=== PATIENT | male | born 1990 | race Caucasian/White ===

== ENCOUNTER 2017-03-27 14:16 | Outpatient (CLI) | payer OTHER | END 2017-03-27 14:17 | disposition home or self-care (01) | LOC: SC 14:16 | PROVIDERS: ATTEND Internal Medicine Pulmonary Disease | DX: G47.10 Hypersomnia, unspecified (principal); R06.83 Snoring; G47.30 Sleep apnea, unspecified | CPT/HCPCS: 99203; 99212 ==

== ENCOUNTER 2017-05-20 19:25 | Outpatient (CLI) | payer OTHER | END 2017-05-20 19:26 | disposition home or self-care (01) | LOC: SC 19:25 | PROVIDERS: ATTEND Internal Medicine Pulmonary Disease | DX: G47.61 Periodic limb movement disorder (principal) | CPT/HCPCS: 95810 ==

== ENCOUNTER 2017-06-05 13:16 | Outpatient (CLI) | payer OTHER | END 2017-06-05 13:17 | disposition home or self-care (01) | LOC: SC 13:16 | PROVIDERS: ATTEND Internal Medicine Pulmonary Disease | DX: G47.61 Periodic limb movement disorder (principal) | CPT/HCPCS: 99212; 99213 ==

== ENCOUNTER 2018-03-07 19:04 | Outpatient (CLI) | payer OTHER ==
--- NOTE | 2018-03-08 15:17 | Ultrasound Report ---
Reason: SCROTAL PAIN Procedure Date: 03/07/2018 Accession Number: [id number] / [id number] Procedure: US - Testicle w/Doppler CPT Code: FULL RESULT: EXAM: SCROTAL ULTRASOUND EXAM DATE: 03/07/2018 08:00 PM. CLINICAL HISTORY: Scrotal pain. COMPARISON: None. TECHNIQUE: Real-time scanning was performed with static images obtained. Both color-flow and Doppler spectral analysis were utilized. FINDINGS: Right: Testis: 4.7 x 2.6 x 3.2 cm. Normal size and echotexture. No mass, calcification, or abnormal blood flow. Epididymis: 1.0 x 0.9 x 1.4 cm. Normal size and echotexture. No mass or abnormal blood flow. Hydrocele: None. Varicocele: None. Left: Testis: 4.6 x 2.5 x 3.1 cm. Normal size and echotexture. No mass, calcification, or abnormal blood flow. Epididymis: 0.9 x 1.4 x 1.7 cm. Normal size and echotexture. No abnormal blood flow. A tiny 0.6 cm epididymal head cyst is noted. Hydrocele: Small amount of hydrocele near the left epididymal head is noted where there is also mildly increased vascularity by color Doppler subjectively. Varicocele: None. IMPRESSION: No evidence of torsion or scrotal mass. Mild hydrocele and increased blood flow in the region of the left epididymis that is tender as pointed out by the patient. This could be a postsurgical inflammatory finding versus less likely infection. No abscess is identified. RADIA
== END 2018-03-07 19:05 | disposition home or self-care (01) ==
LOC: DI 19:04
PROVIDERS: ATTEND Family Medicine
DX: N50.82 Scrotal pain (principal); N43.3 Hydrocele, unspecified
CPT/HCPCS: 76870; 93975

== ENCOUNTER 2021-05-05 11:07 | Emergency (ER) | payer OTHER ==
--- NOTE | 2021-05-05 11:44 | ED Physician Documentation ---
PD HPI URI - Stated complaint Stated Complaint: C+ FEVER N/V - Chief complaint Chief Complaint: Fever - History obtained from History obtained from: Patient - History of Present Illness Timing - onset: How many days ago (4-5) Timing duration: Days (4-5) Timing details: Abrupt onset, Still present Associated symptoms: Fever, Chills, Nasal congestion, Dry cough, NVD (considerable nausea with some vomiting. Unable to eat nor drink much the past 4-5 days. Feeling weak and lightheaded. These symptoms are more bothersome to him than the cough and dyspnea, but both are considerable.) Contributing factors: Sick contact (coworkers. His and son at home are not ill as yet.) Improves by: Rest Worsened by: Activity Similar symptoms before: Has not had sx before Recently seen: Clinic (seen at [facility] with COVID test positive, and then at [facility] with again rapid test positive and given restrictions on quarantine at home and when to return to work/etc. No Rx given.) Review of Systems Constitutional: reports: Fever, Chills, Myalgias Nose: reports: Congestion Throat: denies: Sore throat Cardiac: denies: Chest pain / pressure Respiratory: reports: Dyspnea, Cough. denies: Wheezing GI: reports: Nausea, Vomiting. denies: Abdominal Pain, Diarrhea Skin: denies: Rash, Lesions Musculoskeletal: reports: Back pain Neurologic: reports: Generalized weakness. denies: Altered mental status PD PAST MEDICAL HISTORY - Past Medical History Cardiovascular: None Respiratory: None Neuro: None Endocrine/Autoimmune: None - Present Medications Home Medications: Ambulatory Orders Medication Instructions Recorded Confirmed Benzonatate [Tessalon] 100 mg PO TID PRN #20 cap 05/05/21 Celecoxib [Celebrex] 200 mg PO DAILY 05/05/21 05/05/21 Ondansetron Odt [Zofran] 4 mg TL Q6H PRN #20 tablet 05/05/21 Promethazine Supp [Phenergan Supp] [address] Q6H PRN #5 supp 05/05/21 dexAMETHasone [Decadron] 4 mg PO DAILY #5 tablet 05/05/21 - Allergies Allergies/Adverse Reactions: Allergies Allergy/AdvReac Type Severity Reaction Status Date / Time No Known Drug Allergies Allergy Verified 05/05/21 11:38 - Living Situation Living Situation: reports: With spouse/s.o. Living Arrangement: reports: At home PD ED PE NORMAL - Vitals Vital signs reviewed: Yes (tachycardic; BP okay. ) - General General: Alert and oriented X 3, No acute distress, Well developed/nourished - HEENT HEENT: Pharynx benign. No: Moist mucous membranes - Neck Neck: Supple, no meningeal sign, No adenopathy - Cardiac Cardiac: RRR, No murmur - Respiratory Respiratory: Clear bilaterally - Abdomen Abdomen: Normal bowel sounds, Soft, Non tender - Derm Derm: Warm and dry, No rash. No: Normal color (pale) - Extremities Extremities: No edema, No calf tenderness / cord - Neuro Neuro: Alert and oriented X 3, No motor deficit, Normal speech Results - Vitals Vitals: Vital Signs - 24 hr 05/05/21 05/05/21 05/05/21 11:34 12:10 13:25 Temperature 36.2 C L 37.1 C Heart Rate 98 89 88 Respiratory 16 13 Rate Blood Pressure 118/91 H 119/70 136/90 H O2 Saturation 99 98 05/05/21 05/05/21 14:07 15:59 Temperature Heart Rate 100 93 Respiratory 18 18 Rate Blood Pressure 124/77 O2 Saturation 97 Oxygen O2 Source Room air PD MEDICAL DECISION MAKING - ED course Complexity details: re-evaluated patient (he does not have criteria for monoclonal abx therapy and is not really interested in it anyway. He is not vaccinated. He is interested in meds to help symptoms. feels bertter with IV fluids and meds. Did not like the MDI dosing, felt nauseated. Can skip Rx for that. ), considered differential, d/w patient Departure - Departure Disposition: 01 Home, Self Care Clinical Impression: COVID-19, Dehydration Nausea & vomiting Qualifiers: Vomiting type: unspecified Vomiting Intractability: non-intractable Qualified Code(s): R11.2 - Nausea with vomiting, unspecified Condition: Stable Record reviewed to determine appropriate education?: Yes Instructions: ED Nausea Vomiting Follow-Up: JAX TRISTAN DO [Primary Care Provider] - Prescriptions: dexAMETHasone [Decadron] 4 mg PO DAILY #5 tablet Promethazine Supp [Phenergan Supp] [address] Q6H PRN #5 supp PRN Reason: Nausea / Vomiting Benzonatate [Tessalon] 100 mg PO TID PRN #20 cap PRN Reason: Cough Ondansetron Odt [Zofran] 4 mg TL Q6H PRN #20 tablet PRN Reason: Nausea / Vomiting Comments: Small frequent fluids and bland food. Use the ondansetron every 6 hours if needed for nausea. If you are having more significant nausea and cannot keep that down, use the promethazine suppository instead. Typically the ondansetron is well-tolerated being orally dissolving tablet. Decadron steroid daily for the next 5 days to reduce inflammation through the airways. This should improve breathing and decrease cough. The albuterol inhaler caused enough side effects for you to not use that at this time. I know we had discussed it but will leave it out. Benzonatate as needed for cough and throat irritation. Follow-up with your primary care regarding the work restrictions and such in the time needed for recovery and return to work. I have to defer to their protocols. Transmitted your prescriptions to [facility] pharmacy in [place]. Discharge Date/Time: 05/05/21 16:02
[2021-05-05] MEDS ORDERED: SODIUM CHLORIDE 0.9% 1,000 ML IV STA ×2 (12:41→12:42)
[2021-05-05] MEDS ORDERED: BENZONATATE 100 MG CAPSULE PO STA (12:41)
[2021-05-05] MEDS ORDERED: ALBUTEROL 1 PUFF INH STA (12:41)
[2021-05-05] MEDS ORDERED: DEXAMETHASONE 10 MG/ML VIAL IVP STA (12:41)
[2021-05-05] MEDS ORDERED: ONDANSETRON 4 MG/2 ML VIAL IVP STA (12:41)
[2021-05-05] MEDS ORDERED: PROMETHAZINE INJ 12.5 MG in SODIUM CHLORIDE 0.9% 50 ML IV STA (14:07)
[2021-05-05 16:02] VITALS: BP 124/77
== END 2021-05-05 16:02 | disposition home or self-care (01) ==
LOC: ED 11:07
DX: U07.1 COVID-19 (principal); E86.0 Dehydration; R11.2 Nausea with vomiting, unspecified; R05.9 Cough, unspecified; R06.09 Other forms of dyspnea
CPT/HCPCS: 94640; 96374; 99283; A9270; J7040

== ENCOUNTER 2022-04-21 12:44 | Outpatient (CLI) | payer OTHER ==
--- NOTE | 2022-04-21 13:55 | MRI Report ---
PROCEDURE: LUMBAR SPINE WO INDICATIONS: LOW BACK PAIN TECHNIQUE: Noncontrast sagittal T1 spin echo and T2 fast echo, sagittal STIR, axial T1 and T2 fast spin echo thr ough the lumbar spine. In cases with scoliosis, additional coronal T2 fast spin echo may be performe d. COMPARISON: None. FINDINGS: Image quality: Excellent. Alignment and Curvature: No plain films are available for comparison. Thus, for numbering purposes, 5 lumbar type vertebral bodies will be presumed for the current report. This should be confirmed with plain film correlation prior to any lumbar spinal intervention. There is loss of normal lumbar lordo sis. Roughly 3 mm of retrolisthesis of L5 on S1. Bone Marrow: Marrow is of normal overall signal. No acute vertebral body compression fractures. Spinal Cord: Conus medullaris terminates at the T12-L1 disc space level. Visualized cord demonstrat es normal size. There is a 2 mm diameter high T2 intensity focus within the central substance of the visualized portion of the lower thoracic cord, which is suggestive of a syrinx. Paraspinous Soft Tissues: No paravertebral masses. T12-L1: Normal in appearance. L1-L2: Normal in appearance. L2-L3: Normal in appearance. L3-L4: Normal in appearance. L4-L5: Normal in appearance. L5-S1: Mild disc desiccation and diffuse disc bulge with small superimposed central protrusion. Mild canal stenosis. No foraminal stenosis. IMPRESSION: 1. Findings suggestive of a small lower thoracic syrinx, which is incompletely visualized. Initial fu rther assessment with cervical and thoracic spine MRI with and without intravenous contrast is recomm ended for further assessment. 2. No significant canal, nor foraminal stenosis. Reviewed by: Bianca Sierra MD on 04/21/2022 1:54 PM PDT Approved by: Bianca Sierra MD on 04/21/2022 1:54 PM PDT Station ID: [id number]
== END 2022-04-21 12:45 | disposition home or self-care (01) ==
LOC: DI 12:44
PROVIDERS: ATTEND Student in an Organized Health Care Education/Training Program
DX: M54.50 Low back pain, unspecified (principal)

== ENCOUNTER 2022-05-10 12:44 | Outpatient (CLI) | payer OTHER ==
[~2022-05-10 12:44] MED LIST: GADOBUTROL 10 MMOL/10 ML VIAL ONE
[2022-05-10] MEDS ORDERED: GADOBUTROL 10 MMOL/10 ML VIAL IVP ONE (16:20)
--- NOTE | 2022-05-10 16:44 | MRI Report ---
PROCEDURE: CERVICAL SPINE W/WO INDICATIONS: THORACIC SYRINX CONTRAST: 8.5ml gadavist TECHNIQUE: Noncontrast sagittal T1 spin echo and T2 fast spin echo, sagittal STIR, sagittal PD fast spin echo, f oraminal oblique sagittal T2 fast spin echo, axial gradient echo or T2 fast spin echo through the cer vical spine. After the administration of contrast, sagittal and axial T1 spin echo with fat saturati on through the cervical spine. COMPARISON: None. FINDINGS: Image quality: Excellent. Alignment and curvature: There is normal bony alignment. Marrow: Marrow demonstrates normal overall signal. Spinal cord: Visualized spinal cord is normal in size, without white matter lesions. No suspicious intramedullary enhancement. No cerebellar tonsillar herniation. Paraspinous soft tissues: No paravertebral masses or suspicious enhancement. C2-C3: No disc bulge. The foramina and central canal are patent. C3-C4: No disc bulge. The foramina and central canal are patent. C4-C5: Very minimal disc bulge. The foramina and central canal are patent. C5-C6: Very minimal disc bulge. The foramina and central canal are patent. C6-C7: No disc bulge. The foramina and central canal are patent. C7-T1: No disc bulge. The foramina and central canal are patent. IMPRESSION: Very minimal diffuse disc bulges at C4-5 and C5-6, otherwise normal MRI of the thoracic s pine. Reviewed by: Camden Webber on 05/10/2022 4:43 PM PST Approved by: Camden Webber on 05/10/2022 4:43 PM PST Station ID: [id number]
--- NOTE | 2022-05-10 16:53 | MRI Report ---
PROCEDURE: THORACIC SPINE W/WO INDICATIONS: THORACIC SYRINX CONTRAST: 8.5ml gadavist TECHNIQUE: Noncontrast sagittal T1 spin echo and T2 fast spin echo, sagittal STIR, axial T1 and T2 fast spin ech o through the thoracic spine. After the administration of contrast, axial and sagittal T1 spin echo with fat saturation through the thoracic spine. COMPARISON: None. FINDINGS: Image quality: Excellent. Alignment and curvature: There is normal bony alignment. Marrow: Marrow is of normal overall signal. No acute vertebral body compression fractures. Spinal cord: From T6-7 to T11-12 there is a central cord syrinx measuring up to 2 mm in diameter. Par aspinous soft tissues: No paravertebral masses or abnormal enhancement. No associated mass or abnor mal enhancement. Miscellaneous: Central canal and foramina appear widely patent at all scanned levels. IMPRESSION: 1. 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 2. No associated mass or abnormal enhancement. Reviewed by: Camden Webber on 05/10/2022 4:52 PM PST Approved by: Camden Webber on 05/10/2022 4:52 PM PST Station ID: [id number]
== END 2022-05-10 12:45 | disposition home or self-care (01) ==
LOC: DI 12:44
PROVIDERS: ATTEND Student in an Organized Health Care Education/Training Program
DX: G95.0 Syringomyelia and syringobulbia (principal); M50.321 Other cervical disc degeneration at C4-C5 level
CPT/HCPCS: 72156; 72157; A9585